=== PATIENT | female | born 1975 | race Caucasian/White ===

== ENCOUNTER 2021-10-25 16:09 | Emergency (ER) | payer SELFPAY ==
--- NOTE | 2021-10-25 18:11 | PCDIET ---
Pt left prior to being seen.
== END 2021-10-25 18:11 | disposition left against medical advice (07) ==
LOC: CHSED 16:11
PROVIDERS: Emergency Provider Emergency Medicine; PCP Family Medicine
DX: Z04.9 Encounter for examination and observation for unspecified reason (principal)
CPT/HCPCS: 99199

== ENCOUNTER 2021-11-07 18:48 | Outpatient (NON) | payer SELFPAY | END 2021-11-07 18:49 | disposition home or self-care (01) | LOC: CHSLAB 18:50 | PROVIDERS: PCP Nurse Practitioner Family; Visit Provider Nurse Practitioner Family | DX: L02.91 Cutaneous abscess, unspecified (principal) | CPT/HCPCS: 87070; 87147; 87186; 87205 ==

== ENCOUNTER 2021-11-27 16:27 | Outpatient (CLI) | payer SELFPAY ==
--- NOTE | ~2021-11-27 | XR_ITS ---
XR chest 2V DATE: 11/27/2021 16:49 INDICATION: Smoker. Asthma. Pruritis. TECHNIQUE: PA and lateral views COMPARISON: 06/10/2013 two-view chest FINDINGS: Normal heart size. No hilar or mediastinal enlargement. No pulmonary infiltrate or consolid ation, pleural effusion or pulmonary vascular congestion or pneumothorax. IMPRESSION: No active cardiopulmonary disease Reviewed, dictated and finalized at location B. AMINATION CONSULTANT
[2021-11-27 16:45] LABS: Basophils Absolute Auto 0.03 K/mm3 (0.00-0.10); Basophils Percent Auto 0.3 % (0.0-1.0); Eosinophils Absolute Auto 0.24 K/mm3 (0.02-0.50); Eosinophils Percent Auto 2.2 % (1.0-6.0); Hemoglobin 14.6 g/dL (12.0-15.0); Immature Granulocyte Absolute 0.08 K/mm3 (0.00-0.00); Immature Granulocyte Percent A 0.7 % (0.0-0.0); Lymphocytes Absolute Auto 2.61 K/mm3 (1.10-4.50); Lymphocytes Percent Auto 24.1 % (18.0-42.0); Mean Corpuscular HGB Conc 32.4 g/dL (32.0-36.0); Mean Corpuscular Hemoglobin 30.7 pg (27.0-31.0); Mean Corpuscular Volume 94.7 fL (78.0-102.0); Mean Platelet Volume 9.4 fl (9.2-11.8); Monocytes Absolute Auto 0.92 K/mm3 (0.10-0.90); Monocytes Percent Auto 8.5 % (2.0-11.0); Neutrophils Percent Auto 64.2 % (50.0-70.0); Platelet Count Result 275 K/mm3 (150-420); Red Blood Count 4.75 M/mm3 (4.20-5.40); White Blood Count 10.9 K/mm3 (4.8-10.8)
[2021-11-27 17:17] LABS: Alanine Aminotransferase 38 U/L (14-59); Albumin Level 3.9 g/dL (3.4-5.0); Alkaline Phosphatase 91 U/L (46-116); Anion Gap 10 mmol/L (8-16); Aspartate Amino Transferase 17 U/L (15-37); Bilirubin,Total 0.2 mg/dL (0.00-1.00); Blood Urea Nitrogen 15 mg/dL (7-18); Calcium 9.2 mg/dL (8.5-10.1); Carbon Dioxide 27 mmol/L (21-32); Chloride 101 mmol/L (98-108); Estimated Glomerular Filt Rate > 60; Free T4 Free Thyroxine 0.85 ng/dL (0.76-1.46); Glucose 103 mg/dL (70-99); Osmolality Calculated 286 mOsm/kg (285-295); Potassium 3.7 mmol/L (3.5-5.1); Sodium 138 mmol/L (136-145); Thyroid Stimulating Hormone 2.64 uIU/mL (0.36-3.74); Total Protein 7.3 g/dL (6.4-8.2)
[2021-11-27 17:47] LABS: Erythrocyte Sedimentation Rate 8 mm/hr (0-15)
[2021-11-29 20:11] LABS: SM Antibody <1.0; SM/RNP Antibody <1.0
== END 2021-11-27 16:28 | disposition home or self-care (01) ==
LOC: CHSLAB 16:29
PROVIDERS: PCP Nurse Practitioner Family; Visit Provider Specialist
DX: L29.9 Pruritus, unspecified (principal)
CPT/HCPCS: 36415; 71046; 80053; 84439; 84443; 85025; 85652; 86038; 86140; 86235

== ENCOUNTER 2022-12-28 10:48 | Outpatient (CLI) | payer OTHER, SELFPAY ==
--- NOTE | ~2022-12-28 | MR_ITS ---
EXAMINATION: MR brain/brain stem wo con DATE: 12/28/2022 12:00 INDICATION: Chronic headache. TECHNIQUE: Magnetic resonance imaging (MRI) of the brain and brainstem was performed without intraven ous contrast. COMPARISON: None. FINDINGS: There is no intracranial hemorrhage, acute infarction, or abnormal intracranial mass lesion . The ventricles are normal in size. There is mild mucosal thickening in the paranasal sinuses. The o rbits are normal. There is a trace right mastoid effusion. IMPRESSION: 1. Normal brain. Reviewed, dictated and finalized at location A. STANCE WELDING MACHINE OPERATOR IMPRESSION: 1. Normal brain.
== END 2022-12-28 10:49 | disposition home or self-care (01) ==
LOC: CHSIMG 10:49
PROVIDERS: PCP Family Medicine; Visit Provider Family Medicine
DX: G89.29 Other chronic pain (principal); R51.9 Headache, unspecified
CPT/HCPCS: 70551

== ENCOUNTER 2023-08-18 16:22 | Emergency (ER) | payer OTHER, SELFPAY ==
[2023-08-18] VITALS (14 sets, daily range): BP systolic 95–151; BP diastolic 58–98; PULSE 60–120; RESP 16–20; TEMP 36.6–36.7; O2SAT 95–99
[2023-08-18] MEDS: EPINEPHrine HCL INJ 1 MG/ML AMPUL 0.3 MG IM (16:54)
[2023-08-18] MEDS: FAMOTIDINE 20 MG/2 ML VIAL IV PUSH (16:55)
[2023-08-18] MEDS: diphenhydrAMINE HCl INJ 50 MG/ML VIAL IV PUSH (16:55)
[2023-08-18] MEDS: methylPREDNISolone SOD SUCC 125 MG VIAL IV PUSH (16:55)
--- NOTE | 2023-08-18 18:08 | ED.GENADULT ---
HPI - General Adult General Chief complaint: Allergic Reaction Stated complaint: Allergic Reaction Time Seen by Provider: 08/18/23 16:23 History of Present Illness HPI narrative: The patient is a 48-year-old woman with asthma, smokes cigarettes. Prior cholecystectomy hysterectomy back surgery. Three years ago, when she dyed her hair last, she used an ammonia-based product, which resulted in itching and skin villatoro of her scalp and neck but no facial swelling. She has not dyed her hair since that time. She had used the same hair dye as previously she had used. Since that time, she has not used any hair dye. She started a new job today. On 08/15/2023, she dyed her hair with a [id number] dye, which resulted in sudden burning of the skin. She subsequent developed an outbreak with a rash on the scalp and neck. Today while at work, she developed swelling of both periorbital regions. She has itching. She is uncomfortable. She used a non ammonia based product 3 days ago, which resulted in the allergic reaction. No trouble breathing. No wheezing. No stridor. No swelling of the face or lips. No other complaints. No rash below the neck. Related Data Allergies Allergy/AdvReac Type Severity Reaction Status Date / Time sertraline [Zoloft] Allergy Unknown Unknown Verified 05/27/23 11:48 Review of Systems Review of Systems: All systems reviewed & are unremarkable except as noted in HPI and below Constitutional: Constitutional: Denies chills, Denies excessive sweating, Denies fatigue, Denies fever(s), Denies headache(s) and Denies weakness Eyes: Eyes: Denies change in vision and Denies photophobia ENT: Denies dysphagia, Denies dizziness, Denies headache(s), Denies lip swelling, Denies nasal congestion, Denies sore throat and Denies tongue swelling Cardiovascular: Cardiovascular: Denies chest pain, Denies syncope, Denies rapid heart rate and Denies dyspnea Respiratory: Respiratory: Denies cough, Denies dyspnea and Denies wheezing Gastrointestinal: Gastrointestinal: Denies abdominal pain, Denies constipation, Denies dysphagia, Denies diarrhea, Denies nausea and Denies vomiting Genitourinary: Genitourinary: Denies hematuria, Denies urinary frequency, Denies dysuria and Denies urinary urgency Musculoskeletal: Musculoskeletal: Denies back pain, Denies myalgias, Denies arthralgias, Denies joint swelling and Denies numbness Integumentary/Breasts: Skin/Breast: Reports pruritus, Reports erythema and Reports rash Neurologic: Denies confusion, Denies dizziness, Denies syncope, Denies headache(s), Denies focal weakness, Denies numbness and Denies weakness Psychiatric: Psychiatric: Denies anxiety and Denies confusion Endocrine: Endocrine: Denies excessive sweating and Denies fatigue Hematologic/Lymphatic: Hematologic/Lymphatic: Denies easy bleeding and Denies easy bruising Allergic/Immunologic: Allergic/Immunologic: Denies lip swelling, Denies tongue swelling and Denies wheezing PMFSH Past Medical History Medical History Asthma Depression GERD (gastroesophageal reflux disease) Migraine without aura Nicotine dependence Social History Social History Smoking status: Current every day smoker Alcohol intake: current Alcohol use details: social Substance use: never Substance use type: does not use Living arrangements: with family Additional living arrangements comments: Lives with boyfriend Occupation/Education: occupation Additional occupation/education comments: [employer] Gender identity (if verbalized by the patient): Female Exam Const: General: healthy appearing, no acute distress, alert and well nourished Nutritional Appearance: well nourished Orientation/consciousness: patient oriented x3 Limitations: no limitations HENMT: Head: normal to inspection Ears: external
[2023-08-18] MEDS: SODIUM CHLORIDE 0.9% IV 1,000 ML 999 ML IV CONT (18:20)
[2023-08-18] MEDS: hydrOXYzine HCL 25 MG TABLET 50 MG PO (18:24)
[2023-08-18] MEDS: LORATADINE 10 MG TABLET 20 MG PO (18:24)
[2023-08-18 18:43] LABS: Basophils Absolute Auto 0.03 K/mm3 (0.00-0.10); Basophils Percent Auto 0.2 % (0.0-1.0); Eosinophils Absolute Auto 0.46 K/mm3 (0.02-0.50); Hematocrit 48.2 % (35.0-49.0); Hemoglobin 15.9 g/dL (12.0-15.0); Immature Granulocyte Absolute 0.11 K/mm3 (0.00-0.00); Immature Granulocyte Percent A 0.7 % (0.0-0.0); Lymphocytes Absolute Auto 1.56 K/mm3 (1.10-4.50); Lymphocytes Percent Auto 10.2 % (18.0-42.0); Mean Corpuscular Hemoglobin 31.1 pg (27.0-31.0); Mean Corpuscular Volume 94.3 fL (78.0-102.0); Mean Platelet Volume 9.7 fl (9.2-11.8); Monocytes Absolute Auto 0.74 K/mm3 (0.10-0.90); Monocytes Percent Auto 4.8 % (2.0-11.0); Neutrophils Absolute Auto 12.4 K/mm3 (1.7-7.2); Neutrophils Percent Auto 81.1 % (50.0-70.0); Platelet Count Result 275 K/mm3 (150-420); Red Blood Count 5.11 M/mm3 (4.20-5.40); Red Cell Distribution Width 12.6 % (11.6-14.4); White Blood Count 15.3 K/mm3 (4.8-10.8)
[2023-08-18 19:03] LABS: Alanine Aminotransferase 24 U/L (14-59); Albumin Level 3.3 g/dL (3.4-5.0); Alkaline Phosphatase 93 U/L (46-116); Anion Gap 11 mmol/L (8-16); Aspartate Amino Transferase < 10 U/L (15-37); Bilirubin,Total 0.2 mg/dL (0.00-1.00); Blood Urea Nitrogen 13 mg/dL (7-18); Calcium 9.3 mg/dL (8.5-10.1); Carbon Dioxide 26 mmol/L (21-32); Chloride 104 mmol/L (98-108); Estimated CRCL calculation 49 ml/min; Estimated Glomerular Filt Rate 51; Glucose 124 mg/dL (70-99); Osmolality Calculated 293 mOsm/kg (285-295); Potassium 4.2 mmol/L (3.5-5.1); Sodium 141 mmol/L (136-145); Total Protein 6.5 g/dL (6.4-8.2)
[2023-08-18 19:58] LABS: Erythrocyte Sedimentation Rate 3 mm/hr (0-15)
--- NOTE | 2023-08-18 23:07 | PC.NURSE ---
PER SHAZIA STAUFFER PT REFUSED ANTIBIOTIC
== END 2023-08-18 20:15 | disposition home or self-care (01) ==
PROVIDERS: Emergency Provider Emergency Medicine; PCP Family Medicine
DX: T78.49XA Other allergy, initial encounter (principal); F17.200 Nicotine dependence, unspecified, uncomplicated; X58.XXXA Exposure to other specified factors, initial encounter
CPT/HCPCS: 36415; 80053; 85025; 85652; 86140; 96360; 96361; 99283; A9270; J7030

== ENCOUNTER 2023-08-28 14:12 | Observation (INO) | payer OTHER, SELFPAY ==
[2023-08-28 14:27] VITALS: BP 134/89; PULSE 128; RESP 20; TEMP 37.3; O2SAT 95
[2023-08-28] MEDS: SODIUM CHLORIDE 0.9% IV 1,000 ML 999 ML IV CONT (14:54)
[2023-08-28 15:16] LABS: Basophils Absolute Auto 0.05 K/mm3 (0.00-0.10); Basophils Percent Auto 0.4 % (0.0-1.0); Eosinophils Absolute Auto 0.21 K/mm3 (0.02-0.50); Eosinophils Percent Auto 1.6 % (1.0-6.0); Hematocrit 48.9 % (35.0-49.0); Immature Granulocyte Absolute 0.11 K/mm3 (0.00-0.00); Immature Granulocyte Percent A 0.8 % (0.0-0.0); Lymphocytes Absolute Auto 2.34 K/mm3 (1.10-4.50); Lymphocytes Percent Auto 17.8 % (18.0-42.0); Mean Corpuscular HGB Conc 32.7 g/dL (32.0-36.0); Mean Corpuscular Hemoglobin 30.9 pg (27.0-31.0); Mean Corpuscular Volume 94.4 fL (78.0-102.0); Mean Platelet Volume 9.2 fl (9.2-11.8); Monocytes Absolute Auto 0.78 K/mm3 (0.10-0.90); Monocytes Percent Auto 5.9 % (2.0-11.0); Neutrophils Absolute Auto 9.7 K/mm3 (1.7-7.2); Neutrophils Percent Auto 73.5 % (50.0-70.0); Platelet Count Result 321 K/mm3 (150-420); Red Blood Count 5.18 M/mm3 (4.20-5.40); White Blood Count 13.2 K/mm3 (4.8-10.8)
[2023-08-28 15:32] LABS: INR 0.9; Partial Thromboplastin Time 28.2 SEC (23.90-30.70); Prothrombin Time 10.3 Seconds (9.50-12.10)
[2023-08-28 15:33] LABS: Alanine Aminotransferase 27 U/L (14-59); Albumin Level 2.7 g/dL (3.4-5.0); Alkaline Phosphatase 77 U/L (46-116); Anion Gap 8 mmol/L (8-16); Aspartate Amino Transferase < 10 U/L (15-37); Bilirubin,Total 0.2 mg/dL (0.00-1.00); Blood Urea Nitrogen 17 mg/dL (7-18); CRP 2.6 mg/dL (0.0-0.9); Calcium 8.9 mg/dL (8.5-10.1); Carbon Dioxide 27 mmol/L (21-32); Chloride 104 mmol/L (98-108); Estimated CRCL calculation 58 ml/min; Estimated Glomerular Filt Rate > 60; Glucose 111 mg/dL (70-99); Osmolality Calculated 290 mOsm/kg (285-295); Potassium 4.2 mmol/L (3.5-5.1); Sodium 139 mmol/L (136-145); Total Protein 5.9 g/dL (6.4-8.2)
[2023-08-28 15:34] LABS: Lactic Acid Reflex 0.9 mmol/L (0.4-2.0)
--- NOTE | 2023-08-28 15:54 | PC.NURSE ---
On 08/28/23, the student, [dee best ], provided care and completed [facility] documentation on this patient. I have reviewed the student's documentation and agree with the findings.
--- NOTE | 2023-08-28 16:15 | ED.SKABFB ---
HPI - Skin/Abscess/Foreign Bdy General Chief complaint: Allergic Reaction Stated complaint: rash Time Seen by Provider: 08/28/23 14:22 Source: patient Mode of arrival: ambulatory Limitations: no limitations History of Present Illness HPI narrative: This 48-year-old female that presents some erythema and skin lesions on her scalp that is radiating to her neck area that has some drainage, the patient was seen by her primary and has been clindamycin with some minimal relief. Currently there is no fever chills blood pressure and vitals are stable there is no nausea vomiting no abdominal pain. The patient sent over by her primary care physician because she has been on p.o. antibiotics with minimal to no relief. Patient has symptoms started after she saw her fine arts chair and put on certain dyes and to her scalp for her hair. MD complaint: rash and abscess/boil Location: head Severity: moderate Quality: burning and aching Pain Consistency: constant Relieving factors: none Related Data Allergies Allergy/AdvReac Type Severity Reaction Status Date / Time sertraline [Zoloft] Allergy Unknown Unknown Verified 08/28/23 14:47 EES Allergy Unknown Unknown Uncoded 08/28/23 14:47 NKFA Allergy Unknown Unknown Uncoded 08/28/23 14:47 ERYTHROMYCIN ETHYLSUCCINATE Allergy Y Uncoded 08/28/23 14:47 (Generic Allergy) MACROLIDES Allergy Unknown Uncoded 08/28/23 14:47 Review of Systems Review of Systems: All systems reviewed & are unremarkable except as noted in HPI and below PMFSH Past Medical History Medical History Asthma Depression GERD (gastroesophageal reflux disease) Migraine without aura Nicotine dependence Social History Social History Smoking status: Current every day smoker Alcohol intake: current Alcohol use details: social Substance use: never Substance use type: does not use Living arrangements: with family Additional living arrangements comments: Lives with boyfriend Occupation/Education: occupation Additional occupation/education comments: [employer] Gender identity (if verbalized by the patient): Female Exam Const: General: healthy appearing and no acute distress Nutritional Appearance: well nourished Orientation/consciousness: patient oriented x3 Limitations: no limitations HENMT: Head: normal to inspection Eyes: Conjunctivae: conjunctivae normal Pupils: Equal, round and reactive pupils present EOM: EOMs intact bilaterally Neck: Neck: normal visual inspection Chest: Chest palpation & inspection: normal inspection of the chest Course Course Emergency Course: Patient had [place] [id number], IV was started and IV fluids were given patient was also had blood cultures drawn and 2g IV ceftriaxone was administered. spoke with hospitalist which is in agreement with admission for IV antibiotics. Vital Signs Vital signs: Vital Signs Temperature 37.3 C 08/28/23 14:27 Pulse Rate 128 H 08/28/23 14:27 Respiratory Rate 20 08/28/23 14:27 Blood Pressure 134/89 08/28/23 14:27 Pulse Oximetry 95 08/28/23 14:27 Oxygen Delivery Room Air 08/28/23 14:27 Temperature 37.3 C 08/28/23 14:27 Pulse Rate 128 H 08/28/23 14:27 Respiratory Rate 20 08/28/23 14:27 Blood Pressure 134/89 08/28/23 14:27 Pulse Oximetry 95 08/28/23 14:27 Oxygen Delivery Room Air 08/28/23 14:27 MDM - Skin/Abscess/Foreign Bdy Lab Data 08/28/23 15:01 08/28/23 15:01 Labs: Lab Results 08/28/23 Range/Units 15:01 WBC 13.2 H (4.8-10.8) K/mm3 RBC 5.18 (4.20-5.40) M/mm3 Hgb 16.0 H (12.0-15.0) g/dL Hct 48.9 (35.0-49.0) % MCV 94.4 (78.0-102.0) fL MCH 30.9 (27.0-31.0) pg MCHC 32.7 (32.0-36.0) g/dL RDW 13.0 (11.6-14.4) % Plt Count 321 (150-420) K/mm3 MPV 9.2 (9.
[2023-08-28] MEDS: cefTRIAXone 2 GM/NS 100 ML 2 GM/100 ML BAG IVPB (16:24)
[2023-08-28 16:35] VITALS: BP 105/74; PULSE 101; RESP 20; TEMP 37.3; O2SAT 96
[2023-08-28] MEDS: MORPHINE SULFATE (*CRX) 2 MG/ML INJ IV PUSH (16:44)
[2023-08-28 17:00] VITALS: PULSE 101; RESP 20; O2SAT 96
[2023-08-28 17:28] VITALS: BP 108/56; PULSE 100; RESP 18; TEMP 37.2; O2SAT 97
[2023-08-28 17:40] VITALS: BMI 32.5
[2023-08-28] MEDS: ACETAMINOPHEN 325 MG TABLET 650 MG PO (18:32)
[2023-08-28] MEDS: hydrOXYzine HCL 25 MG TABLET 50 MG PO (18:32)
--- NOTE | 2023-08-28 18:46 | ADMGEN ---
1710 This patient, Atiya Kumar, was admitted to 2nd Floor Room 205-1. admitting dx cellulitis. Patient/family oriented to hospital policies and general routines including ID bracelet, bed and alarms, visiting hours, pain management, procedures, bathroom and other care routines, personal items, smoking policy, room service/diet, and visiting hours. Information on how to activate the Rapid Response Team has been discussed. Patient/Family are encouraged to report perceived risks to care and to ask questions if they do not understand what they are told or what they should do. she is here for cellulitis of ju ears upper back/shoulders into her neck, upper chest, forehead into hairline, r eye, and in scalp. 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 this reaction started with r eye swelling shut r eye remains puffy and red/purple. her forehead into hair line is bright red, shiny,weeping areas. clear fluid. ju ears have crusty scabs and bright redshiny with clear weeping fluids. upper back and shoulders up into neck is bright red, shiny and tight has areas of weeping. hair is matted down over entire mostly in back. if able to lift hair up scalp is bright red and weeping. her upper chest is bright red with smred spots scattered. area are very tender and claims she itches all over. claims it is all very painful and itchy.
[2023-08-28] MEDS: KETOROLAC 30 MG/ML VIAL (*BKC) IV PUSH (20:30)
[2023-08-28] MEDS: ALPRAZolam (*CRX) 0.5 MG TABLET PO (20:31)
[2023-08-28] MEDS: FAMOTIDINE 20 MG/2 ML VIAL IV PUSH (20:31)
[2023-08-29] VITALS: BP 112/71; PULSE 97; RESP 18; TEMP 36.5; O2SAT 96
--- NOTE | 2023-08-29 05:45 | PC.NURSE ---
Patient had difficulty with skin itching, resulting in scratching her skin. Given atarax at 1832, but skin continued to itch and cause scratching. Patient was given a mixture of antifungal cream containing aloe vera and a triple antibiotic to use on her rash. She was also given Xanax and Toradol at 2030, which allowed her to relax and sleep. Scratching was no longer a concern. Patient slept through the night.
[2023-08-29 05:58] LABS: Estimated CRCL calculation 70 ml/min; Estimated Glomerular Filt Rate > 60
[2023-08-29] MEDS: ACETAMINOPHEN 325 MG TABLET 650 MG PO (06:42)
--- NOTE | 2023-08-29 07:10 | PM.IMHP ---
H&P: HPI History of Present Illness Date/Time: 08/29/23 07:10 Chief Complaint: chemical burn Narrative: This is a 48 year old female with a PMH of asthma, depression, GERD, migraine, and nicotine dependence. She presented to [place] ED on 08/28 from her PCP's office with complaints of scalp pain 2/2 what appears to be a chemical burn from hair dye. Review of Systems Review of Systems: All systems reviewed & are unremarkable except as noted in HPI and below PMFSH Past Medical History Medical History Asthma Depression GERD (gastroesophageal reflux disease) Migraine without aura Nicotine dependence Social History Social History Smoking status: Never smoker Alcohol intake: never Alcohol use details: social Substance use: never Substance use type: does not use Lack of Transportation: No Lack of Food: Never True Current Housing: I Have Housing Concerned About Future Housing: No Difficulty Paying Gas/Electric Bills: No Difficulty Paying for Meds: No Currently Unemployed: No Education: Associate Degree Difficulty w/ Childcare or Family Care: No Living arrangements: with family Additional living arrangements comments: Lives with boyfriend Occupation/Education: occupation Additional occupation/education comments: [employer] Gender identity (if verbalized by the patient): Female Spiritual care concerns: No Meds Home Medications and Allergies Home Medications Medication Instructions Recorded Confirmed Type ibuprofen 400 mg tablet 400 mg PO TID #30 tabs 07/05/22 08/28/23 Rx loratadine 10 mg capsule 20 mg PO DAILY 10 days #20 caps 08/18/23 08/28/23 Rx alprazolam 0.5 mg tablet 0.5 mg PO TID PRN anxiety or 08/26/23 08/28/23 Rx insomnia #20 tabs clindamycin HCl 150 mg capsule 450 mg PO TID 5 days #45 caps 08/26/23 08/28/23 Rx hydroxyzine HCl 50 mg tablet 50 mg PO QID PRN itching #20 tabs 08/26/23 08/28/23 Rx Allergies Allergy/AdvReac Type Severity Reaction Status Date / Time sertraline [Zoloft] Allergy Unknown Unknown Verified 08/28/23 14:47 EES Allergy Unknown Unknown Uncoded 08/28/23 14:47 NKFA Allergy Unknown Unknown Uncoded 08/28/23 14:47 ERYTHROMYCIN ETHYLSUCCINATE Allergy Y Uncoded 08/28/23 14:47 (Generic Allergy) MACROLIDES Allergy Unknown Uncoded 08/28/23 14:47 Vital Signs Vital Signs - 24 hr 08/28/23 14:27 08/28/23 16:35 08/28/23 17:28 Temperature 99.1 F 99.2 F 99 F Pulse Rate 128 H 101 H 100 Respiratory Rate 20 20 18 Blood Pressure 134/89 105/74 108/56 L Pulse Oximetry 95 96 97 Oxygen Delivery Room Air Room Air 08/28/23 17:00 08/29/23 00:00 Temperature 97.7 F Pulse Rate 101 H 97 Respiratory Rate 20 18 Blood Pressure 112/71 Pulse Oximetry 96 96 Oxygen Delivery Room Air Room Air Exam Narrative: General: well appearing, well developed, well nourished, appears stated age. HEENT: normocephalic, atraumatic. Mucous membranes moist. EOMI, PERRLA, bilateral sclera anicteric, no conjunctival injection. Neck supple without JVD, lymphadenopathy, or bruit. Respiratory: clear to ascultation bilaterally. No rales/rhonic/wheezes. Cardiovascular: Regular rate and rhythm, normal S1-S2 upon ascultation. No murmurs, rubs, or clicks. PMI is nondisplaced, capillary re-fill less than 3 second. Abdomen: Soft, flat, no pulsatile masses, non-distended and non-tender. No rebound, no guarding. No CVA tenderness, no hepatosplenomegaly. Bowel sounds present to all four quadrants. No high pitch or tinkling sounds, resonant to percussion. Extremities: No cyanosis, clubbing, or edema present. Pulses are palpable 2/2. Active ROM to all four extremities. Neuro: Alert and orientated x 4. PERRLA. Cranial nerves 2-12 intact without focal deficit. Skin: Warm, dry, and intact, without rash, erythema, or lesion. Lines: Incisions: Psych: pl
[2023-08-29 07:24] LABS: Basophils Absolute Auto 0.03 K/mm3 (0.00-0.10); Basophils Percent Auto 0.5 % (0.0-1.0); Eosinophils Absolute Auto 0.48 K/mm3 (0.02-0.50); Eosinophils Percent Auto 7.4 % (1.0-6.0); Hematocrit 43.9 % (35.0-49.0); Hemoglobin 14.2 g/dL (12.0-15.0); Immature Granulocyte Percent A 1.5 % (0.0-0.0); Lymphocytes Absolute Auto 2.18 K/mm3 (1.10-4.50); Lymphocytes Percent Auto 33.6 % (18.0-42.0); Mean Corpuscular HGB Conc 32.3 g/dL (32.0-36.0); Mean Corpuscular Hemoglobin 31.2 pg (27.0-31.0); Mean Corpuscular Volume 96.5 fL (78.0-102.0); Mean Platelet Volume 9.7 fl (9.2-11.8); Monocytes Absolute Auto 0.59 K/mm3 (0.10-0.90); Monocytes Percent Auto 9.1 % (2.0-11.0); Neutrophils Absolute Auto 3.1 K/mm3 (1.7-7.2); Neutrophils Percent Auto 47.9 % (50.0-70.0); Platelet Count Result 266 K/mm3 (150-420); Red Blood Count 4.55 M/mm3 (4.20-5.40); Red Cell Distribution Width 13.3 % (11.6-14.4); White Blood Count 6.5 K/mm3 (4.8-10.8)
[2023-08-29 07:30] VITALS: BP 78/51; PULSE 79; RESP 18; TEMP 36.2; O2SAT 95
[2023-08-29 07:35] LABS: Alanine Aminotransferase 13 U/L (14-59); Albumin Level 2.2 g/dL (3.4-5.0); Alkaline Phosphatase 70 U/L (46-116); Anion Gap 10 mmol/L (8-16); Aspartate Amino Transferase 10 U/L (15-37); Bilirubin,Total 0.1 mg/dL (0.00-1.00); Blood Urea Nitrogen 18 mg/dL (7-18); Calcium 8.4 mg/dL (8.5-10.1); Carbon Dioxide 24 mmol/L (21-32); Chloride 106 mmol/L (98-108); Estimated CRCL calculation 68 ml/min; Estimated Glomerular Filt Rate > 60; Glucose 112 mg/dL (70-99); Osmolality Calculated 292 mOsm/kg (285-295); Potassium 3.9 mmol/L (3.5-5.1); Sodium 140 mmol/L (136-145)
[2023-08-29] MEDS: SODIUM CHLORIDE 0.9% IV 1,000 ML 999 ML IV CONT (07:45)
[2023-08-29 07:50] VITALS: BP 97/61
[2023-08-29] MEDS: MORPHINE SULFATE (*CRX) 2 MG/ML INJ IV PUSH (07:51)
--- NOTE | 2023-08-29 07:52 | PM.TDS ---
Transfer Discharge Sum: Prov Provider Date of admission: 08/28/23 16:26 Primary care physician: Scott Garsia DO Admitting clinician: Yaya Hess MD DS: Admitting Diagnosis Discharge Date 08/29 Admitting Diagnosis chemical burn DS: Discharge Diagnosis Discharge Diagnosis (1) Self-inflicted chemical burn: Code(s): T65.92XA - Toxic effect of unspecified substance, intentional self-harm, initial encounter; T30.4 - Corrosion of unspecified body region, unspecified degree Status: Acute Transfer Discharge Sum: Med Medications Active and Home Medications: Home Medications ibuprofen 400 mg tablet 400 mg PO TID #30 tabs 07/05/22 [Rx Confirmed 08/28/23] loratadine 10 mg capsule 20 mg PO DAILY 10 days #20 caps 08/18/23 [Rx Confirmed 08/28/23] alprazolam 0.5 mg tablet 0.5 mg PO TID PRN anxiety or insomnia #20 tabs 08/26/23 [Rx Confirmed 08/28/23] clindamycin HCl 150 mg capsule 450 mg PO TID 5 days #45 caps 08/26/23 [Rx Confirmed 08/28/23] hydroxyzine HCl 50 mg tablet 50 mg PO QID PRN itching #20 tabs 08/26/23 [Rx Confirmed 08/28/23] Active Medications Acetaminophen (Acetaminophen 325 Mg Tablet) 650 mg PO Q6H [facility] Last Admin: 08/29/23 06:42 Dose: 650 mg Alprazolam (Alprazolam (*Crx) 0.5 Mg Tablet) 0.5 mg PO TID PRN PRN Reason: anxiety or insomnia Last Admin: 08/28/23 20:31 Dose: 0.5 mg Bacitracin/Polymyxin B Sulfate (Bacitracin/Polymyxin B Oint 15 Gm Tube) 1 applic TOPICAL BID ANALISA Famotidine (Famotidine 20 Mg/2 Ml Vial) 20 mg IV PUSH Q12HR ANALISA Last Admin: 08/28/23 20:31 Dose: 20 mg Hydroxyzine HCl (Hydroxyzine Hcl 25 Mg Tablet) 50 mg PO QID PRN PRN Reason: itching Last Admin: 08/28/23 18:32 Dose: 50 mg Vancomycin HCl (Vancomycin 1,500 Mg/D5w 500 Ml) 1,500 mg in 500 mls @ 250 mls/hr IVPB Q24H ANALISA Ceftriaxone Sodium (Rocephin 1 Gm/Ns 50 Ml) 1 gm in 50 mls @ 100 mls/hr IVPB Q24H [facility] Sodium Chloride (Normal Saline Iv) 1,000 mls @ 999 mls/hr IV CONT .Q1H1M ONE Stop: 08/29/23 08:32 Last Admin: 08/29/23 07:45 Dose: 999 mls/hr Ketorolac Tromethamine (Ketorolac 30 Mg/Ml Vial (*Bkc)) 30 mg IV PUSH Q6H PRN PRN Reason: Pain Rated 1-3 Stop: 08/29/23 22:00 Last Admin: 08/28/23 20:30 Dose: 30 mg Loratadine (Loratadine 10 Mg Tablet) 20 mg PO DAILY [facility] Methylprednisolone Sodium Succinate (Methylprednisolone Sod Succ 125 Mg Vial) 80 mg IV PUSH ONCE ONE Stop: 08/29/23 07:51 Ondansetron HCl (Ondansetron Inj 4 Mg/2 Ml Vial) 4 mg IV PUSH Q6H PRN PRN Reason: Nausea And Vomiting Oxycodone HCl (Oxycodone Hcl (*Crx) 5 Mg Tab Ir) 5 mg PO Q4H PRN PRN Reason: Pain Rated 4-6 Oxycodone HCl (Oxycodone Hcl (*Crx) 5 Mg Tab Ir) 10 mg PO Q4H PRN PRN Reason: Pain Rated 7-10 Transfer Discharge Sum: Hosp Hospital Course Hospital course: Atiya Kumar is a 48 year old female with a PMH of asthma, depression, GERD, migraine, and nicotine dependence. She presented to [place] ED on 08/28 from her PCP's office with complaints of scalp pain 2/2 what appears to be a chemical burn from hair dye. She reports dyeing her hair on 08/14 with a non-ammonia based hair dye. She experience some burning at the time but wasn't too concerned as this is to be expected. A couple of days later on 08/18 she developed a small lesion on her head and swelling to her right eye. She was seen in [place] ED at the time and diagnosed with an allergic reaction discharging home on Bactrim and a steroid dose tara. She presented back to her PCP on 08/26 with worsening erythema, itching and pain to her scalp. She was given IM Rocephin and sent home with Clindamycin and agents for itching. On 08/28 she returned back to her PCP with worsening pain, erythema, and drainage to her scalp. Her PCP then sent her to [place] ED for evaluation. In the ED she was found to have a mild leukocytosis of 13.2, CRP 2.6, tachycardic in the 120's, and low grade temperature of 100.1. Blood cultures and wound cultures were drawn and she was given IV Rocehpin
--- NOTE | 2023-08-29 08:20 | PC.NURSE ---
received room assignment from Edie Manning to go to 574-6
[2023-08-29] MEDS: methylPREDNISolone SOD SUCC 125 MG VIAL 80 MG IV PUSH (08:23)
--- NOTE | 2023-08-29 08:40 | PC.NURSE ---
called report to [facility]
[2023-08-29] MEDS: LORATADINE 10 MG TABLET 20 MG PO (08:46)
[2023-08-29] MEDS: FAMOTIDINE 20 MG/2 ML VIAL IV PUSH (08:47)
--- NOTE | 2023-08-29 09:35 | PC.NURSE ---
Transferred per ambulance to [place]. Report to EMS personal belongings sent with patient, copy of medical record with patient. Pt was alert and oriented and agreeable to transfer.
--- NOTE | 2023-09-10 09:32 | PM.IMHP ---
H&P: HPI History of Present Illness Date/Time: 09/10/23 09:32 Chief Complaint: burn from hair dye to scalp Narrative: Atiya Kumar is a 48 year old female with a PMH of asthma, depression, GERD, migraine, and nicotine dependence. She presented to [place] ED on 08/28 from her PCP's office with complaints of scalp pain 2/2 what appears to be a chemical burn from hair dye. She reports dyeing her hair on 08/14 with a non-ammonia based hair dye. She experience some burning at the time but wasn't too concerned as this is to be expected. A couple of days later on 08/18 she developed a small lesion on her head and swelling to her right eye. She was seen in [place] ED at the time and diagnosed with an allergic reaction discharging home on Bactrim and a steroid dose tara. She presented back to her PCP on 08/26 with worsening erythema, itching and pain to her scalp. She was given IM Rocephin and sent home with Clindamycin and agents for itching. On 08/28 she returned back to her PCP with worsening pain, erythema, and drainage to her scalp. Her PCP then sent her to [place] ED for evaluation. In the ED she was found to have a mild leukocytosis of 13.2, CRP 2.6, tachycardic in the 120's, and low grade temperature of 100.1. Blood cultures and wound cultures were drawn and she was given IV Rocehpin and a 1 L saline bolus. She was admitted for IV antibiotics, pain control, wound care and further workup. 08/29: This morning the patient is experiencing new facial swelling since admission. She denies difficulty breathing or swallowing. Her eyes are puffy and her face overall looks more round than when she first presented. She also has some unilateral swelling to her right arm which she says is because I'm allergic to the cold . She says that two days ago her left arm was swollen and now the left is swollen. She says that this is normal for her every time it gets cold outside. She states that prior to 08/14 she was feeling well and was in good health. She denies taking any new medications besides the antibiotics she has recently been prescribed. She reports severe pain to her right ear and scalp with erythema and serous drainage. This morning she had a low blood pressure of 70/50's however she had just woke up and was asymptomatic. Given her infection, swelling, and low blood pressure I went ahead and gave her a 1 L saline bolus. She will also receive IV solu-medrol for the facial swelling. Last night I had spoke with Dr Ava Bella, attending at [facility] burn center who reviewed her case and photos. At this time she does not need burn center services as there is no skin sloughing for debridement. Should this change she can be re-evaluated for transfer. At this time she recommends local wound care with application of bacitracin cream BID. Due to the new development of facial swelling I am going to transfer the patient to [place] for closer monitoring and formal wound consult. Dr De Luna is accepting. Review of Systems Review of Systems: All systems reviewed & are unremarkable except as noted in HPI and below PMFSH Past Medical History Medical History (Updated 09/04/23 @ 11:28 by Scott Garsia, ) Asthma delivery delivered Depression GERD (gastroesophageal reflux disease) Migraine without aura Nicotine dependence RLS (restless legs syndrome) Surgical History Surgical History (Updated 08/29/23 @ 11:46 by Loyda Betancourt APRN) H/O: hysterectomy Social History Social History (Updated 08/29/23 @ 11:47 by Loyda Betancourt APRN) Years smoked: 35 Smoking status: Current every day smoker Tobacco type: cigarettes Alcohol intake: never Alcohol use details: social Substance use: never Substance use type: does not use Lack of Transportation: No Lack of Food: Never True Current Housing: I Have Housing Concerned About Future Housing: No Difficulty Paying Gas/Electric Bills: No Difficulty Paying for Meds: No Currently Unemployed:
== END 2023-08-29 09:35 | disposition short-term general hospital (02) ==
LOC: CHSED 16:26 → CHS2ND 16:39
PROVIDERS: Nurse Practitioner Acute Care; Admitting Provider Internal Medicine; Emergency Provider Emergency Medicine; PCP Family Medicine; Visit Provider Internal Medicine
DX: T65.91XA Toxic effect of unspecified substance, accidental (unintentional), initial encounter (principal); T20.45XA Corrosion of unspecified degree of scalp [any part], initial encounter; Y92.89 Other specified places as the place of occurrence of the external cause; L03.811 Cellulitis of head [any part, except face]; L02.811 Cutaneous abscess of head [any part, except face]; D72.829 Elevated white blood cell count, unspecified; J45.909 Unspecified asthma, uncomplicated; K21.9 Gastro-esophageal reflux disease without esophagitis; G43.909 Migraine, unspecified, not intractable, without status migrainosus; F17.210 Nicotine dependence, cigarettes, uncomplicated; F10.90 Alcohol use, unspecified, uncomplicated
CPT/HCPCS: 36415; 80053; 82565; 83605; 85025; 85610; 85730; 86140; 87040; 87070; 87205; 96361; 96365; 96375; 99285; A9270; J0696; J1885; J2270; J2930; J3370; J7030

== ENCOUNTER 2023-08-29 11:34 | Inpatient (IN) | payer OTHER, SELFPAY ==
[2023-08-29 10:15] VITALS: BMI 34.8
--- NOTE | 2023-08-29 10:15 | ADMGEN ---
This patient, Atiya Kumar, was admitted to 3 [facility] Surg Room 315-02 @ 1015. Patient/family oriented to hospital policies and general routines including ID bracelet, bed and alarms, visiting hours, pain management, procedures, bathroom and other care routines, personal items, smoking policy, room service/diet, and visiting hours. Information on how to activate the Rapid Response Team has been discussed. Patient/Family are encouraged to report perceived risks to care and to ask questions if they do not understand what they are told or what they should do.
[2023-08-29 10:47] VITALS: BP 110/68; PULSE 77; RESP 14; TEMP 35.9; O2SAT 99
--- NOTE | 2023-08-29 11:34 | PM.IMHP ---
H&P: HPI History of Present Illness Date/Time: 08/29/23 11:34 Chief Complaint: scalp chemical burn Narrative: Atiya Kumar is a 48 year old female with a PMH of asthma, depression, GERD, migraine, and nicotine dependence. She presented to [place] ED on 08/28 from her PCP's office with complaints of scalp pain 2/2 what appears to be a chemical burn from hair dye. She reports dyeing her hair on 08/14 with a non-ammonia based hair dye. She experience some burning at the time but wasn't too concerned as this is to be expected. A couple of days later on 08/18 she developed a small lesion on her head and swelling to her right eye. She was seen in [place] ED at the time and diagnosed with an allergic reaction discharging home on Bactrim and a steroid dose tara. She presented back to her PCP on 08/26 with worsening erythema, itching and pain to her scalp. She was given IM Rocephin and sent home with Clindamycin and agents for itching. On 08/28 she returned back to her PCP with worsening pain, erythema, and drainage to her scalp. Her PCP then sent her to [place] ED for evaluation. In the ED she was found to have a mild leukocytosis of 13.2, CRP 2.6, tachycardic in the 120's, and low grade temperature of 100.1. Blood cultures and wound cultures were drawn and she was given IV Rocehpin and a 1 L saline bolus. She was admitted for IV antibiotics, pain control, wound care and further workup. 08/29: This morning the patient is experiencing new facial swelling since admission. She denies difficulty breathing or swallowing. Her eyes are puffy and her face overall looks more round than when she first presented. She also has some unilateral swelling to her right arm which she says is because I'm allergic to the cold . She says that two days ago her left arm was swollen and now the left is swollen. She says that this is normal for her every time it gets cold outside. She states that prior to 08/14 she was feeling well and was in good health. She denies taking any new medications besides the antibiotics she has recently been prescribed. She reports severe pain to her right ear and scalp with erythema and serous drainage. This morning she had a low blood pressure of 70/50's however she had just woke up and was asymptomatic. Given her infection, swelling, and low blood pressure I went ahead and gave her a 1 L saline bolus. She will also receive IV solu-medrol for the facial swelling. Last night I had spoke with Dr Ava Bella, attending at [facility] burn center who reviewed her case and photos. At this time she does not need burn center services as there is no skin sloughing for debridement. Should this change she can be re-evaluated for transfer. At this time she recommends local wound care with application of bacitracin cream BID. Due to the new development of facial swelling I am going to transfer the patient to [place] for closer monitoring and formal wound consult. Dr De Luna is accepting. Review of Systems Review of Systems: All systems reviewed & are unremarkable except as noted in HPI and below PMFSH Past Medical History Medical History (Updated 08/29/23 @ 11:46 by Loyda Betancourt APRN) Asthma delivery delivered Depression GERD (gastroesophageal reflux disease) Migraine without aura Nicotine dependence RLS (restless legs syndrome) Surgical History Surgical History (Updated 08/29/23 @ 11:46 by Loyda Betancourt APRN) H/O: hysterectomy Social History Social History (Updated 08/29/23 @ 11:47 by Loyda Betancourt APRN) Years smoked: 35 Smoking status: Current every day smoker Tobacco type: cigarettes Alcohol intake: never Alcohol use details: social Substance use: never Substance use type: does not use Lack of Transportation: No Lack of Food: Never True Current Housing: I Have Housing Concerned About Future Housing: No Difficulty Paying Gas/Electric Bills: No Difficulty Paying for Meds: No Currently Unemployed: No Ed
[2023-08-29] MEDS: BACITRACIN OINTMENT 15 GM TUBE 1 APPLIC TOPICAL ×2 (13:44→21:25)
[2023-08-29] MEDS: ACETAMINOPHEN 325 MG TABLET 650 MG PO ×2 (13:44→18:27)
[2023-08-29] MEDS: IBUPROFEN 400 MG TABLET 800 MG PO ×2 (13:45→16:56)
[2023-08-29] MEDS: hydrOXYzine HCL 25 MG TABLET 50 MG PO ×2 (13:46→18:27)
[2023-08-29] MEDS: MORPHINE SULFATE (*CRX) 2 MG/ML INJ IV PUSH (13:47)
[2023-08-29 14:00] VITALS: BP 111/78; PULSE 85; RESP 16; TEMP 36.1; O2SAT 97
[2023-08-29] MEDS: oxyCODONE HCL (*CRX) 5 MG TAB IR 10 MG PO ×2 (17:14→21:24)
[2023-08-29] MEDS: FAMOTIDINE 20 MG/2 ML VIAL IV PUSH (21:24)
[2023-08-29] MEDS: AMITRIPTYLINE HCL 25 MG TABLET 75 MG PO (21:24)
[2023-08-29 22:00] VITALS: BP 110/65; PULSE 71; RESP 18; TEMP 36.6; O2SAT 96
[2023-08-30] MEDS: hydrOXYzine HCL 25 MG TABLET 50 MG PO ×3 (01:12→12:29)
[2023-08-30] MEDS: ACETAMINOPHEN 325 MG TABLET 650 MG PO ×2 (01:12→12:28)
[2023-08-30 05:45] LABS: Basophils Percent Auto 0.3 % (0.2-1.2); Eosinophils Absolute Auto 0.1 K/mm3 (0-0.3); Eosinophils Percent Auto 0.4 % (0-4.4); Hematocrit 39.6 % (37.0-47.0); Hemoglobin 12.6 g/dL (12.0-15.0); Immature Granulocyte Absolute 0.16 K/mm3 (0.00-0.031); Immature Granulocyte Percent A 1.1 % (0-0.5); Lymphocytes Absolute Auto 2.13 K/mm3 (0.9-3.2); Lymphocytes Percent Auto 14.9 % (18.3-44.2); Mean Corpuscular HGB Conc 31.8 g/dl (32-36); Mean Corpuscular Hemoglobin 30.5 pg (26-34); Mean Corpuscular Volume 95.9 fl (80-100); Mean Platelet Volume 9.4 fl (7.4-10.4); Monocytes Absolute Auto 0.8 K/mm3 (0.1-0.6); Monocytes Percent Auto 5.5 % (2.6-8.5); Neutrophils Absolute Auto 11.1 K/mm3 (1.3-6.7); Neutrophils Percent Auto 77.8 % (45.5-73.1); Platelet Count Result 253 k/mm3 (150-375); Red Blood Count 4.13 M/mm3 (4.2-5.4); White Blood Count 14.3 K/mm3 (4.5-10.0)
[2023-08-30 05:54] LABS: Alanine Aminotransferase 26 U/L (6-35); Albumin Level 2.8 g/dL (3.5-5.1); Alkaline Phosphatase 56 U/L (38-126); Anion Gap -1 mmol/L (8-16); Aspartate Amino Transferase 24 U/L (14-36); Bilirubin,Total 0.3 mg/dL (0.2-1.3); Blood Urea Nitrogen 7 mg/dL (7-17); Calcium 8.2 mg/dL (8.4-10.2); Carbon Dioxide 26 mmol/L (22-30); Chloride 110 mmol/L (98-107); Estimated CRCL calculation 92 ml/min; Estimated Glomerular Filt Rate > 60; Glucose 107 mg/dL (65-110); Potassium 3.9 mmol/L (3.4-5.0); Sodium 135 mmol/L (137-145)
[2023-08-30] MEDS: oxyCODONE HCL (*CRX) 5 MG TAB IR 10 MG PO ×2 (05:58→10:05)
[2023-08-30 06:00] VITALS: BP 105/71; PULSE 81; RESP 18; TEMP 36.6; O2SAT 99
--- NOTE | 2023-08-30 08:17 | PM.IMPN ---
Progress Note: A&P Assessment and Plan (1) Self-inflicted chemical burn: Code(s): T65.92XA - Toxic effect of unspecified substance, intentional self-harm, initial encounter; T30.4 - Corrosion of unspecified body region, unspecified degree Status: Acute Assessment and Plan: Traumatic erythema, pain, and blisters with serous drainage. Leukocytosis 13.2, tachycardia 120's, intermittently low blood pressures Received fluids in the ED and started on Rocephin. Added vancomycin due to open draining wounds and history of MRSA. Wound and blood cultures pending Added Pepcid and Claritin for itching. Also has prn hydroxyzine. Scheduled Tylenol and ibuprofen for pain with prn 5-10 mg oxy for pain with morphine for breakthrough pain and wound care. Consult wound care. Recommendations appreciated. I spoke with Dr Ava Bella with [facility] burn center who does not feel any debridement is necessary at this time due to lack of tissue sloughing. She recommended bacitracin BID to erythematous areas and ask for formal wound consult. Should the patient's condition change, they would be happy to re-evaluate her. She also left a number for [facility] [phone] and said the patient is welcome to follow up in their clinic. Leukocytosis of 14.3 today up from 6. However, patient did receive IV steroids yesterday for facial swelling. No fevers. Continue to trend. Subjective Date/time seen: 08/30/23 08:17 Interval history: Atiya Kumar is a 48 year old female with a PMH of asthma, depression, GERD, migraine, and nicotine dependence. She presented to [place] ED on 08/28 from her PCP's office with complaints of scalp pain 2/2 what appears to be a chemical burn from hair dye. She reports dyeing her hair on 08/14 with a non-ammonia based hair dye. She experience some burning at the time but wasn't too concerned as this is to be expected. A couple of days later on 08/18 she developed a small lesion on her head and swelling to her right eye. She was seen in [place] ED at the time and diagnosed with an allergic reaction discharging home on Bactrim and a steroid dose tara. She presented back to her PCP on 08/26 with worsening erythema, itching and pain to her scalp. She was given IM Rocephin and sent home with Clindamycin and agents for itching. On 08/28 she returned back to her PCP with worsening pain, erythema, and drainage to her scalp. Her PCP then sent her to [place] ED for evaluation. In the ED she was found to have a mild leukocytosis of 13.2, CRP 2.6, tachycardic in the 120's, and low grade temperature of 100.1. Blood cultures and wound cultures were drawn and she was given IV Rocehpin and a 1 L saline bolus. She was admitted for IV antibiotics, pain control, wound care and further workup. 08/29: This morning the patient is experiencing new facial swelling since admission. She denies difficulty breathing or swallowing. Her eyes are puffy and her face overall looks more round than when she first presented. She also has some unilateral swelling to her right arm which she says is because I'm allergic to the cold . She says that two days ago her left arm was swollen and now the left is swollen. She says that this is normal for her every time it gets cold outside. She states that prior to 08/14 she was feeling well and was in good health. She denies taking any new medications besides the antibiotics she has recently been prescribed. She reports severe pain to her right ear and scalp with erythema and serous drainage. This morning she had a low blood pressure of 70/50's however she had just woke up and was asymptomatic. Given her infection, swelling, and low blood pressure I went ahead and gave her a 1 L saline bolus. She will also receive IV solu-medrol for the facial swelling. Last night I had spoke with Dr Ava Bella, attending at [facility] burn center who reviewed her case and photos. At this time she does not need burn center services as there is no s
[2023-08-30] MEDS: FAMOTIDINE 20 MG/2 ML VIAL IV PUSH (08:50)
[2023-08-30] MEDS: LORATADINE 10 MG TABLET PO (08:50)
[2023-08-30] MEDS: IBUPROFEN 400 MG TABLET 800 MG PO ×2 (08:50→13:23)
[2023-08-30] MEDS: BACITRACIN OINTMENT 15 GM TUBE 1 APPLIC TOPICAL (08:51)
[2023-08-30] MEDS: NICOTINE (*PBKC) 2 MG GUM PO (08:54)
--- NOTE | 2023-08-30 12:04 | PM.DS ---
DS: Admitting Diagnosis Discharge Date 08/30 Admitting Diagnosis cellulitis vs chemical burn of the scalp DS: Discharge Diagnosis Discharge Diagnosis (1) Self-inflicted chemical burn: Code(s): T65.92XA - Toxic effect of unspecified substance, intentional self-harm, initial encounter; T30.4 - Corrosion of unspecified body region, unspecified degree Status: Acute Assessment and Plan: Traumatic erythema, pain, and blisters with serous drainage. Leukocytosis 13.2, tachycardia 120's, intermittently low blood pressures Received fluids in the ED and started on Rocephin. Added vancomycin due to open draining wounds and history of MRSA. Wound and blood cultures pending Added Pepcid and Claritin for itching. Also has prn hydroxyzine. Scheduled Tylenol and ibuprofen for pain with prn 5-10 mg oxy for pain with morphine for breakthrough pain and wound care. Consult wound care. Recommendations appreciated. I spoke with Dr Ava Bella with [facility] [place] who does not feel any debridement is necessary at this time due to lack of tissue sloughing. She recommended bacitracin BID to erythematous areas and ask for formal wound consult. Should the patient's condition change, they would be happy to re-evaluate her. She also left a number for [facility] clinic [phone] and said the patient is welcome to follow up in their clinic. Leukocytosis of 14.3 today up from 6. However, patient did receive IV steroids yesterday for facial swelling. No fevers. Continue to trend. DS: Summary Hospital Course Hospital Course: Interval history: Atiya Kumar is a 48 year old female with a PMH of asthma, depression, GERD, migraine, and nicotine dependence. She presented to [place] ED on 08/28 from her PCP's office with complaints of scalp pain 2/2 what appears to be a chemical burn from hair dye. She reports dyeing her hair on 08/14 with a non-ammonia based hair dye. She experience some burning at the time but wasn't too concerned as this is to be expected. A couple of days later on 08/18 she developed a small lesion on her head and swelling to her right eye. She was seen in [place] ED at the time and diagnosed with an allergic reaction discharging home on Bactrim and a steroid dose tara. She presented back to her PCP on 08/26 with worsening erythema, itching and pain to her scalp. She was given IM Rocephin and sent home with Clindamycin and agents for itching. On 08/28 she returned back to her PCP with worsening pain, erythema, and drainage to her scalp. Her PCP then sent her to [place] ED for evaluation. In the ED she was found to have a mild leukocytosis of 13.2, CRP 2.6, tachycardic in the 120's, and low grade temperature of 100.1. Blood cultures and wound cultures were drawn and she was given IV Rocehpin and a 1 L saline bolus. She was admitted for IV antibiotics, pain control, wound care and further workup. 08/29: This morning the patient is experiencing new facial swelling since admission. She denies difficulty breathing or swallowing. Her eyes are puffy and her face overall looks more round than when she first presented. She also has some unilateral swelling to her right arm which she says is because I'm allergic to the cold . She says that two days ago her left arm was swollen and now the left is swollen. She says that this is normal for her every time it gets cold outside. She states that prior to 08/14 she was feeling well and was in good health. She denies taking any new medications besides the antibiotics she has recently been prescribed. She reports severe pain to her right ear and scalp with erythema and serous drainage. This morning she had a low blood pressure of 70/50's however she had just woke up and was asymptomatic. Given her infection, swelling, and low blood pressure I went ahead and gave her a 1 L saline bolus. She will also receive IV solu-medrol for the facial swelling. Last night I had spoke with Dr Ava Bella, attending at [facility]
== END 2023-08-30 14:45 | disposition home or self-care (01) | DRG 918 ==
PROVIDERS: Nurse Practitioner Acute Care; Admitting Provider Family Medicine; PCP Family Medicine; Visit Provider Family Medicine
DX: T65.6X1A Toxic effect of paints and dyes, not elsewhere classified, accidental (unintentional), initial encounter (principal); T20.45XA Corrosion of unspecified degree of scalp [any part], initial encounter; D72.829 Elevated white blood cell count, unspecified; K21.9 Gastro-esophageal reflux disease without esophagitis; F32.A Depression, unspecified; G25.81 Restless legs syndrome; G43.909 Migraine, unspecified, not intractable, without status migrainosus; J45.909 Unspecified asthma, uncomplicated; F17.210 Nicotine dependence, cigarettes, uncomplicated
CPT/HCPCS: 36415; 80053; 85025; A9270; J0696; J2270; J3370

== ENCOUNTER 2024-06-30 10:28 | Outpatient (CLI) | payer OTHER, SELFPAY ==
--- NOTE | ~2024-06-30 | XR_ITS ---
Clinical Indication: Cough PA and lateral views of the chest: Comparison: 11/27/2021 Findings: The lungs are clear, without evidence of focal consolidation or pleural effusion. Cardiome diastinal silhouette is within normal limits. Bones and soft tissues are unremarkable. Impression: Normal chest. Reviewed, dictated and finalized at location . Impression: Normal chest.
--- NOTE | 2024-07-20 20:14 | WPDPFTINT ---
PFT Procedure Performed PFT Procedure Performed Spirometry with Pre/Post Bronchodilator Plethysmography (Lung Vol) Diffusing Cap (DLCO) Flow Vol Loop PFT Interpretation DOS: 07/01/2024 REQUESTING: Dr. Scott Garsia REASON FOR TESTING: asthma PULMONARY FUNCTION TESTS Spirometry: The pre-bronchodilator FEV1 is []. The pre-bronchodilator FVC is []. The FEV1/FVC ratio is []. After bronchodilator, the FEV1 is []. The FVC is []. The FEV1/FVC ratio is []. Lung volumes: The total lung capacity is []. The residual volume is []. The RV/TLC is []. Diffusion: DLCO is []. The DLCO/VA is []. Flow volume loop: The flow volume loop is []. IMPRESSION: Shameka Saha MD
== END 2024-06-30 10:29 | disposition home or self-care (01) ==
PROVIDERS: PCP Family Medicine; Visit Provider Family Medicine
DX: R05.3 Chronic cough (principal)
CPT/HCPCS: 71046

== ENCOUNTER 2024-07-01 11:02 | Outpatient (CLI) | payer OTHER, SELFPAY ==
--- NOTE | 2024-07-20 20:21 | WPDPFTINT ---
PFT Procedure Performed PFT Procedure Performed Spirometry with Pre/Post Bronchodilator Plethysmography (Lung Vol) Diffusing Cap (DLCO) Flow Vol Loop PFT Interpretation DOS: 07/01/2024 REQUESTING: Dr. Scott Garsia REASON FOR TESTING: Asthma PULMONARY FUNCTION TESTS Results are not reliable and reproducible as the patient was not able to perform the forced vital capacity maneuver. She was not able to keep her lips on the mouthpiece. This underestimated the degree of airflow obstruction. Spirometry: The pre-bronchodilator FEV1 is 1.70 L, 73%. The pre-bronchodilator FVC is 2.29 L, 82%. The FEV1/FVC ratio is 74%. After bronchodilator, the FEV1 is 1.82 L, 78%, +7%. The FVC is 2.69 L, 96%, +18%. The FEV1/FVC ratio is 68%. This is a significant response to bronchodilator. Lung volumes: The total lung capacity is 4.11 L, 98%. The residual volume is 1.76 L, 124%. The RV/TLC is 43%. Airway resistance is increased. Diffusion: DLCO is 14.2, 67%. The DLCO/VA is 3.98, 97%. Flow volume loop: The flow volume loop shows mild coving of the expiratory limb. IMPRESSION: This study shows a mild obstructive ventilatory impairment with a good response to bronchodilator, mild air trapping, and mild diffusion impairment which normalizes with alveolar volume. No prior studies to compare. The patient had a challenging test due to inability to keep her lips on the mouthpiece. She was giving her best effort. Shameka Saha MD
== END 2024-07-01 11:03 | disposition home or self-care (01) ==
LOC: CHSCARD 11:04
PROVIDERS: PCP Family Medicine; Visit Provider Family Medicine
DX: J45.909 Unspecified asthma, uncomplicated (principal); R94.2 Abnormal results of pulmonary function studies
CPT/HCPCS: 94060; 94726; 94729